=== PATIENT | female | born 2005 | race Caucasian/White ===

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

== ENCOUNTER → 2023-11-03 | Outpatient (CLI) | payer OTHER, BC ==
[2023-11-05 16:59] LABS: APTIMA MEDIA TYPE Urine; C. TRACHOMATIS BY TMA Negative (Negative); N. GONORRHOEAE BY TMA Negative (Negative); SPECIMEN SOURCE Urine; T. VAGINALIS BY TMA Negative (Negative)
== END ==
LOC: LAB 10:48 → LAB SHORT 10:48
PROVIDERS: Registered Nurse Community Health
DX: Z32.01 Encounter for pregnancy test, result positive (principal)
CPT/HCPCS: 87491; 87591; 87661

== ENCOUNTER → 2023-11-14 | Outpatient (CLI) | payer OTHER, BC ==
[2023-11-14 12:31] LABS: Source, Urine Clean Catch
[2023-11-14 14:22] LABS: Bilirubin, Urine Neg (Neg); Blood, Urine Neg (Neg); Glucose Qualitative, Urine Neg (Neg); Ketones, Urine Neg (Neg); Leukocyte Esterase, Urine Neg (Neg); Nitrite, Urine Neg (Neg); Protein, Urine Neg (Neg); Urobilinogen, Urine NORM (Normal)
[2023-11-14 14:39] LABS: Appearance, Urine Clear (Clear); Color, Urine Pale Yellow (P-Yellow)
[2023-11-14 16:48] LABS: BASOPHILS ABSOLUTE AUTO 0.07 K/mm3 (0.00-0.23); BASOPHILS PERCENT AUTO 1 % (0-2); EOSINOPHILS ABSOLUTE AUTO 0.17 K/mm3 (0.00-0.68); EOSINOPHILS PERCENT AUTO 2 % (0-6); Hematocrit 38.8 % (33.0-51.0); Hemoglobin 12.9 g/dL (11.5-16.0); IMMATURE GRAN ABSOLUTE AUTO 0.02 K/mm3 (0.00-0.10); IMMATURE GRAN PERCENT AUTO 0 % (0-1); LYMPHOCYTES ABSOLUTE AUTO 1.58 K/mm3 (0.84-5.20); LYMPHOCYTES PERCENT AUTO 20 % (21-46); MONOCYTES ABSOLUTE AUTO 0.86 K/mm3 (0.16-1.47); MONOCYTES PERCENT AUTO 11 % (4-13); Mean Corpuscular HGB 31.9 pg (26.0-34.0); Mean Corpuscular HGB Conc 33.2 g/dL (31.5-36.5); Mean Corpuscular Volume 96 fL (80-100); Mean Platelet Volume 11.4 fL (9.1-12.4); NEUTROPHILS ABSOLUTE AUTO 5.24 K/mm3 (1.96-9.15); NEUTROPHILS PERCENT AUTO 66 % (41-73); Platelet Count 315 K/mm3 (150-400); RDW Coefficient Variation 13.3 % (11.7-14.2); RDW Standard Deviation 47.5 fL (35.1-46.3); Red Blood Cell Count 4.05 M/mm3 (3.80-5.20); White Blood Cell Count 7.94 K/mm3 (4.00-11.30)
[2023-11-15 15:18] LABS: HEPATITIS B SURFACE ANTIGEN Negative (Negative)
[2023-11-15 18:00] LABS: HIV 1,2 COMBO ANTIGEN/ANTIBODY Negative (Negative)
[2023-11-16 10:35] LABS: HEPATITIS C AB CIA INTERP Negative (Negative); HEPATITIS C ANTIBODY CIA INDEX 0.02 IV
== END | disposition home or self-care (01) ==
LOC: LAB SHORT 10:20 → LAB 10:20
PROVIDERS: Registered Nurse Community Health
DX: Z34.91 Encounter for supervision of normal pregnancy, unspecified, first trimester (principal)
CPT/HCPCS: 81003; 84443; 86803; 87086; 87340; 87389

== ENCOUNTER → 2023-11-17 | Outpatient (CLI) | payer OTHER, BC ==
[2023-11-19 12:19] LABS: APTIMA MEDIA TYPE Urine; C. TRACHOMATIS BY TMA Negative (Negative); N. GONORRHOEAE BY TMA Negative (Negative); SPECIMEN SOURCE Urine
== END ==
LOC: LAB SHORT 15:22 → LAB 15:22
PROVIDERS: Registered Nurse Community Health
DX: Z34.91 Encounter for supervision of normal pregnancy, unspecified, first trimester (principal)
CPT/HCPCS: 87491; 87591

== ENCOUNTER → 2023-12-18 | Outpatient (CLI) | payer OTHER, BC | LOC: LAB SHORT 12:52 → LAB 12:52 | DX: O21.9 Vomiting of pregnancy, unspecified (principal) | CPT/HCPCS: 87086 ==

== ENCOUNTER 2024-02-16 22:35 | Emergency (ER) | payer OTHER, BC ==
[~2024-02-16] VITALS: Ht 162.6 cm; Wt 61.2 kg
[2024-02-16 22:48] VITALS: BP 112/70
[2024-02-16] MEDS ORDERED: PRENATAL TABLE1 EAC2 PO (22:51)
[2024-02-16] MEDS ORDERED: METO10 PO (23:35)
== END 2024-02-16 23:37 | disposition home or self-care (01) ==
LOC: ER 22:35
DX: O99.512 Diseases of the respiratory system complicating pregnancy, second trimester (principal); J02.9 Acute pharyngitis, unspecified; Z3A.20 20 weeks gestation of pregnancy; Z79.899 Other long term (current) drug therapy
CPT/HCPCS: 87081; 87430; 99283

== ENCOUNTER → 2024-04-10 | Outpatient (CLI) | payer OTHER, BC ==
[~2024-04-10] MED LIST: METO10 PO; PRENATAL TABLE1 EAC2 PO
[2024-04-10 18:48] LABS: Hemoglobin 10.9 g/dL (11.5-16.0)
== END | disposition home or self-care (01) ==
LOC: LAB SHORT 17:35
PROVIDERS: Registered Nurse Community Health
DX: Z34.93 Encounter for supervision of normal pregnancy, unspecified, third trimester (principal)
CPT/HCPCS: 82950; 85014; 85018

== ENCOUNTER → 2024-06-06 | Outpatient (CLI) | payer BC, OTHER ==
[~2024-06-06] MED LIST changes: +IBUP800 PO
== END ==
LOC: LAB SHORT 16:15 → LAB 16:15
DX: Z34.03 Encounter for supervision of normal first pregnancy, third trimester (principal)
CPT/HCPCS: 87081; 87150

== ENCOUNTER 2024-06-10 07:30 | Inpatient (IN) | payer BC, OTHER ==
[2024-06-10] VITALS (22 sets, daily range): BP systolic 117–149; BP diastolic 58–83
[~2024-06-10] VITALS: Ht 160 cm; Wt 80.0 kg
[~2024-06-10 07:30] MED LIST changes: -IBUP800 PO
[2024-06-10] MEDS ORDERED: Acetaminophen 500 MG Tab PO PRN (08:20)
[2024-06-10] MEDS ORDERED: FentaNYL 2mcg/ml-Bup 0.1% Epd 250 ML EPI PRN (08:20)
[2024-06-10] MEDS ORDERED: OXYTOCIN/RINGER'S LACTATE 500 ML IV PRN (08:20)
[2024-06-10] MEDS ORDERED: Calcium Carbonate 500 MG Tab Chew PO PRN (08:20)
[2024-06-10] MEDS ORDERED: Oxytocin 10 Unit / ML Vial IM PRN (08:20)
[2024-06-10] MEDS ORDERED: ePHEDrine Sulfate 50 MG/ML 1ML Injection XX PRN (08:20)
[2024-06-10] MEDS ORDERED: Tranexamic Acid 100 ML IV PRN (08:20)
[2024-06-10] MEDS ORDERED: Misoprostol 200 MCG Tab PR PRN (08:20)
[2024-06-10] MEDS ORDERED: Carboprost Tromethamine 250 MCG/ML 1ML Amp IM PRN (08:20)
[2024-06-10] MEDS ORDERED: Methylergonovine Maleate 0.2MG / ML 1ML Amp IM PRN (08:20)
[2024-06-10] MEDS ORDERED: Lactated Ringer's 1,000 ML IV PRN ×2 (08:20)
[2024-06-10] MEDS ORDERED: Ondansetron HCl 2 MG / ML 2ML Vial IV PRN (08:20)
[2024-06-10] MEDS ORDERED: Lactated Ringer's 1,000 ML IV SCH (08:20)
[2024-06-10] MEDS ORDERED: Misoprostol 200 MCG Tab BC PRN (08:20)
[2024-06-10] MEDS ORDERED: FentaNYL Citrate 50 MCG/ML 2 ML Injection IV PRN (08:20)
[2024-06-10 09:20] LABS: BASOPHILS ABSOLUTE AUTO 0.08 K/mm3 (0.00-0.23); BASOPHILS PERCENT AUTO 0 % (0-2); EOSINOPHILS ABSOLUTE AUTO 0.07 K/mm3 (0.00-0.68); EOSINOPHILS PERCENT AUTO 0 % (0-6); Hematocrit 32.7 % (33.0-51.0); Hemoglobin 11.1 g/dL (11.5-16.0); IMMATURE GRAN ABSOLUTE AUTO 0.19 K/mm3 (0.00-0.10); IMMATURE GRAN PERCENT AUTO 1 % (0-1); LYMPHOCYTES PERCENT AUTO 7 % (21-46); MONOCYTES ABSOLUTE AUTO 0.92 K/mm3 (0.16-1.47); MONOCYTES PERCENT AUTO 4 % (4-13); Mean Corpuscular HGB Conc 33.9 g/dL (31.5-36.5); Mean Corpuscular Volume 88 fL (80-100); Mean Platelet Volume 11.5 fL (9.1-12.4); NEUTROPHILS ABSOLUTE AUTO 21.14 K/mm3 (1.96-9.15); NEUTROPHILS PERCENT AUTO 87 % (41-73); Platelet Count 335 K/mm3 (150-400); RDW Coefficient Variation 13.2 % (11.7-14.2)
[2024-06-11] VITALS (28 sets, daily range): BP systolic 117–163; BP diastolic 60–85
[2024-06-11] MEDS ORDERED: OXYTOCIN/RINGER'S LACTATE 500 ML IV SCH ×2 (03:45→16:15)
[2024-06-11] MEDS ORDERED: Lactated Ringer's 1,000 ML IV PRN (03:45)
[2024-06-11] MEDS ORDERED: Penicillin G Potassium 5,000,000 UNITS in NS 250 ML IV ONE (09:10)
[2024-06-11] MEDS ORDERED: Penicillin G Potassium 2,500,000 UNITS in Dextrose 5% 100 ML IV SCH (13:30)
[2024-06-11] MEDS ORDERED: Lidocaine 2%-Epineph 1:200000 20 ML SDV ONE (13:48)
[2024-06-11] MEDS ORDERED: Diphth,Pertuss(Acell),Tet Vac 0.5 ML VIAL IM ONE (16:05)
[2024-06-11] MEDS ORDERED: Benzocaine Topical Anesthetic Spray 60GM TOP PRN (16:05)
[2024-06-11] MEDS ORDERED: Measles/Mumps/Rubella Vaccine 0.5 ML Vial SC ONE (16:05)
[2024-06-11] MEDS ORDERED: Acetaminophen 325 MG TABLET PO PRN (16:05)
[2024-06-11] MEDS ORDERED: Methylergonovine Maleate 0.2MG / ML 1ML Amp IM PRN (16:05)
[2024-06-11] MEDS ORDERED: Acetaminophen/Codeine 300-30 mg PO PRN (16:10)
[2024-06-11] MEDS ORDERED: Docusate Sodium 100 MG Cap PO PRN (16:10)
[2024-06-11] MEDS ORDERED: Ibuprofen 400 MG Tab PO PRN (16:10)
[2024-06-11] MEDS ORDERED: Lactated Ringer's 1,000 ML IV SCH (16:10)
[2024-06-11] MEDS ORDERED: Witch Hazel/Glycerin PADS TOP PRN (16:10)
[2024-06-11] MEDS ORDERED: Misoprostol 200 MCG Tab PR PRN (16:10)
[2024-06-11] MEDS ORDERED: Ketorolac Tromethamine 30mg Vial IV PRN (16:15)
[2024-06-11] MEDS ORDERED: Oxytocin 10 Unit / ML Vial IM ONE (16:15)
[2024-06-11] MEDS ORDERED: Lanolin Cream TOP PRN (16:15)
[2024-06-11] MEDS ORDERED: OxyCODONE 5 mg/Acetamin 325 mg TABLET PO PRN (16:15)
[2024-06-12 03:33] VITALS: BP 119/79
[2024-06-12 06:54] LABS: BASOPHILS ABSOLUTE AUTO 0.07 K/mm3 (0.00-0.23); BASOPHILS PERCENT AUTO 0 % (0-2); EOSINOPHILS ABSOLUTE AUTO 0.15 K/mm3 (0.00-0.68); EOSINOPHILS PERCENT AUTO 1 % (0-6); Hematocrit 30.8 % (33.0-51.0); Hemoglobin 10.3 g/dL (11.5-16.0); IMMATURE GRAN ABSOLUTE AUTO 0.13 K/mm3 (0.00-0.10); IMMATURE GRAN PERCENT AUTO 1 % (0-1); LYMPHOCYTES ABSOLUTE AUTO 2.26 K/mm3 (0.84-5.20); LYMPHOCYTES PERCENT AUTO 12 % (21-46); MONOCYTES ABSOLUTE AUTO 1.51 K/mm3 (0.16-1.47); MONOCYTES PERCENT AUTO 8 % (4-13); Mean Corpuscular HGB 29.6 pg (26.0-34.0); Mean Corpuscular HGB Conc 33.4 g/dL (31.5-36.5); Mean Corpuscular Volume 89 fL (80-100); Mean Platelet Volume 11.4 fL (9.1-12.4); NEUTROPHILS ABSOLUTE AUTO 15.27 K/mm3 (1.96-9.15); NEUTROPHILS PERCENT AUTO 79 % (41-73); Platelet Count 262 K/mm3 (150-400); RDW Coefficient Variation 13.2 % (11.7-14.2); RDW Standard Deviation 42.6 fL (35.1-46.3); Red Blood Cell Count 3.48 M/mm3 (3.80-5.20); White Blood Cell Count 19.39 K/mm3 (4.00-11.30)
[2024-06-12 07:57] VITALS: BP 148/68
[2024-06-12] MEDS ORDERED: Prenatal Vit/FE Fumarate/FA 1 Tab PO SCH (09:00)
[2024-06-12 11:07] VITALS: BP 130/91
[2024-06-12] MEDS ORDERED: Ketorolac Tromethamine 30mg Vial IV PRN (13:30)
[2024-06-12 14:39] VITALS: BP 138/77
--- NOTE | 2024-06-12 15:07 | NUR ---
UGARTE INSERTION DATE UPDATED PER EMR
[2024-06-12] MEDS ORDERED: IBUP800 PO (17:27)
[2024-06-12 20:36] VITALS: BP 138/98
--- NOTE | 2024-06-12 21:58 | NUR ---
RN WENT OVER DISCHARGE TEACHING/PACKET. RN EDUCATED PT ON WHAT BECOMING A BOARDER PT IS. IV OUT, APPT MADE/CARD GIVEN, AND ALL QUESTIONS/CONCERNS ANSWERED AT THIS TIME. PT GOING TO BOARDER NOW.
[2024-06-13 01:08] VITALS: BP 131/79
== END 2024-06-12 22:00 | disposition home or self-care (01) | DRG 807 ==
LOC: OBS 07:30 → BC 07:31 → OBS 08:10 → BC 08:11
PROVIDERS: ADMIT Registered Nurse Community Health
PROC: 4A1HXCZ Monitoring of Products of Conception, Cardiac Rate, External Approach (ICD-10-PCS; 2024-06-10)
PROC: 10E0XZZ Delivery of Products of Conception, External Approach (ICD-10-PCS; principal; 2024-06-11)
PROC: 0HQ9XZZ Repair Perineum Skin, External Approach (ICD-10-PCS; 2024-06-11)
DX: O42.02 Full-term premature rupture of membranes, onset of labor within 24 hours of rupture (principal); Z37.0 Single live birth; Z3A.37 37 weeks gestation of pregnancy; O70.0 First degree perineal laceration during delivery
CPT/HCPCS: 36415; 51702; 59025; 81003; 85025; 86850; 86900; 86901; 99214; A9270; J1885; J2405; J2540; J2590; J3010; J7050; J7120

== ENCOUNTER → 2025-01-28 | Outpatient (CLI) | payer BC, OTHER ==
[~2025-01-28] MED LIST changes: +IBUP800 PO
[2025-01-28 15:18] LABS: BASOPHILS ABSOLUTE AUTO 0.06 K/mm3 (0.00-0.23); BASOPHILS PERCENT AUTO 1 % (0-2); EOSINOPHILS ABSOLUTE AUTO 0.20 K/mm3 (0.00-0.68); EOSINOPHILS PERCENT AUTO 2 % (0-6); Hematocrit 38.0 % (33.0-51.0); Hemoglobin 12.5 g/dL (11.5-16.0); IMMATURE GRAN ABSOLUTE AUTO 0.03 K/mm3 (0.00-0.10); IMMATURE GRAN PERCENT AUTO 0 % (0-1); LYMPHOCYTES ABSOLUTE AUTO 2.06 K/mm3 (0.84-5.20); LYMPHOCYTES PERCENT AUTO 20 % (21-46); MONOCYTES ABSOLUTE AUTO 0.85 K/mm3 (0.16-1.47); MONOCYTES PERCENT AUTO 8 % (4-13); Mean Corpuscular HGB Conc 32.9 g/dL (31.5-36.5); Mean Corpuscular Volume 89 fL (80-100); NEUTROPHILS ABSOLUTE AUTO 7.08 K/mm3 (1.96-9.15); NEUTROPHILS PERCENT AUTO 69 % (41-73); NRBC ABSOLUTE 0.00 K/mm3 (0.00-0.02); NRBC Auto 0.0 /100 WBC (0.0-0.2); Platelet Count 392 K/mm3 (150-400); RDW Coefficient Variation 14.6 % (11.7-14.2); RDW Standard Deviation 46.8 fL (35.1-46.3)
[2025-01-29 14:18] LABS: HIV 1,2 COMBO ANTIGEN/ANTIBODY Negative (Negative)
[2025-01-29 16:26] LABS: HEPATITIS C AB CIA INTERP Negative (Negative); HEPATITIS C ANTIBODY CIA INDEX 0.06 IV
== END ==
LOC: LAB 08:20 → LAB SHORT 08:20
PROVIDERS: Registered Nurse Community Health
DX: Z34.91 Encounter for supervision of normal pregnancy, unspecified, first trimester (principal)
CPT/HCPCS: 80055; 84443; 86803; 86870; 87389